=== PATIENT | female | born 1985 | race Caucasian/White ===

== ENCOUNTER 2016-10-31 17:15 | Emergency (ER) | payer OTHER ==
[2016-10-31] MEDS ORDERED: lamoTRIgine 100 MG TAB PO ONE (18:44)
--- NOTE | 2016-10-31 18:49 | EDPHY ---
H & P Stated Complaint: Sleep deprivation. Wants eval for meds. Time Seen by Provider: 10/31/16 17:22 HPI/ROS: CHIEF COMPLAINT: trouble sleeping HISTORY OF PRESENT ILLNESS: 31-year-old female presents emergency department with her best friend reporting difficulty sleeping. [place] ago. She has been taking Lamictal for bipolar disorder and clonazepam for sleep for the past 3 months. Over the past 2 months she has weaned herself from 2 mg of clonazepam down to 0.5 mg before sleeping. Patient stopped the clonazepam 4 days ago and she stopped taking her 100 mg of Lamictal 4 days ago as well because she felt like she did not want to be drugged. Patient reports depression, intermittent suicidal thoughts back in July. She denies current suicidal thoughts, homicidal thoughts, auditory or visual hallucinations. Patient saw her psychiatrist in [place] last week before coming to [place]. She reports or difficulty sleeping the last 4 nights are due to racing thoughts. REVIEW OF SYSTEMS: A comprehensive 10 point review of systems is otherwise negative aside from elements mentioned in the history of present illness. Source: Patient Exam Limitations: No limitations - Personal History LMP (Females 10-55): 1-7 Days Ago Current Tetanus/Diphtheria Vaccine: Yes Current Tetanus Diphtheria and Acellular Pertussis (TDAP): Yes - Medical/Surgical History Hx Asthma: No Hx Chronic Respiratory Disease: No Hx Diabetes: No Hx Cardiac Disease: No Hx Renal Disease: No Hx Cirrhosis: No Hx Alcoholism: No Hx HIV/AIDS: No Hx Splenectomy or Spleen Trauma: No Other PMH: bipolar - Social History Smoking Status: Never smoked - Physical Exam Exam: Physical Exam Gen: Alert and Oriented, NAD HEENT: PERRL, moist mucous membranes NECK: no meningismus CV: regular rate and regular rhythm PULM: CTAB, no wheezes ABDOMEN: soft, non tender to palpation, BS present BACK: No CVA tenderness NEURO: Neurologically grossly intact EXTREMITIES: normal appearing SKIN: no rash or break in skin on exposed skin PSYCH: answers questions appropriately. Denies suicidal thoughts, homicidal thoughts, auditory or visual hallucinations Constitutional: Initial Vital Signs Temperature (C) 36.5 C 10/31/16 17:27 Heart Rate 78 10/31/16 17:27 Respiratory Rate 14 10/31/16 17:27 Blood Pressure 119/76 10/31/16 17:27 O2 Sat (%) 99 10/31/16 17:27 O2 Delivery Mode Room Air Allergies/Adverse Reactions: bees Allergy (Uncoded 10/31/16 17:26) Home Medications: Medication Instructions Recorded Clonidine 0.5 10/31/16 LaMICtal 10/31/16 Penicillin VK 10/31/16 lamoTRIgine [LamICTAL 100 MG (*)] 100 mg PO DAILY #14 tab 10/31/16 Medical Decision Making ED Course/Re-evaluation: Mental health retail merchandising coordinator has given this patient resources as it looks like she will be in [place] for an undetermined amount of time. Patient was encouraged to start her Lamictal again, she agrees to take her 1st dose here now. She has her prescriptions at home and is willing to start them again. I discussed with the patient that is important to start seeing a therapist and psychiatrist. She is given strict return precautions for any suicidal thoughts, other questions or concerns. I discussed the dangers of coming off of her Lamictal abruptly like she did. - Data Points Medications Given: Discontinued Medications Lamotrigine (Lamictal) 100 mg PO EDNOW ONE Stop: 10/31/16 18:45 Last Admin: 10/31/16 19:20 Dose: 100 mg Departure - Departure Disposition: Home, Routine, Self-Care Clinical Impression: Noncompliance with medication regimen Insomnia Qualifiers: Insomnia type: unspecified Qualified Code(s): G47.00 - Insomnia, unspecified Condition: Good Instructions: Bipolar Disorder (ED), Suicide Prevention for Adults (ED), Insomnia (ED) Additional Instructions: 1. Please follow-up with the mental health resources provided in the ED today. 2. [facility] does operate a 24/ psychiatric crisis unit located at [address] [place] [address]. The telephone number for the 24 hour crisis center is [phone]. 3. Please return to the ED if you are feeling suicidal, having thoughts of harming yourself/others or should you feel unsafe or have worsening symptoms. Referrals: P[facility] CACERES [Other] - As per Instructions [facility] [Outside] - As per Instructions Prescriptions: lamoTRIgine [LamICTAL 100 MG (*)] 100 mg PO DAILY #14 tab
[2016-10-31 19:40] VITALS: BP 104/69; PULSE 75; RESP 16; TEMP 98.2; O2SAT 96
== END 2016-10-31 19:39 | disposition home or self-care (01) ==
DX: G47.00 Insomnia, unspecified (principal); Z91.14 Patient's other noncompliance with medication regimen